=== PATIENT | male | born 1985 | race Caucasian/White ===

== ENCOUNTER 2017-02-03 12:00 | Emergency (ER) | payer OTHER ==
--- NOTE | ~2017-02-03 | EKG ---
PATIENT: LENA MILLER UNIT #: [id number] Ventricular Rate: 70 BPM Atrial Rate: 70 BPM P-R Interval: 142 ms QRS Duration: 118 ms Q-T Interval: 408 ms QTC Calculation(Bezet): 440 ms P [place]: 72 degrees Calculated R [place]: 68 degrees Calculated T [place]: 29 degrees Diagnosis Line: Normal sinus rhythm Diagnosis Line: RSR' or QR pattern in V1 suggests right Diagnosis Line: ventricular conduction delay Diagnosis Line: Borderline ECG Diagnosis Line: When compared with ECG of 28-SEP-2016 01:15, Diagnosis Line: No significant change was found Diagnosis Line: Confirmed by LIZZY PEREZ MD ([id number]) on Diagnosis Line: 02/03/2017 11:24:43 PM INTERPRETING MD: GABBY
--- NOTE | ~2017-02-03 | CT71 ---
[facility] A Service of [facility] RADIOLOGY TEXT RESULTS PATIENT: LENA MILLER LOCATION: [place] : 85 UNIT #: [id number] AGE: [address]: Smith Riley MD SEX: M ORDER DR: [id number] [facility] [address] [place], [place] [address] [id number] E MR#: [id number] Acc #: [id number] NAME: LENA MILLER : 1985 SEX: M STUDY DATE/TIME: 02/03/2017 14:20 UNIT: [place] ROOM: STUDY DESCRIPTION: CT Head Wo Contrast Attending Physician: Kal Downs D.O. Referring Physician: No Primary Care Physician Ordering Physician: Smith Botello M.D. Primary Care Physician: No Primary Care Physician MEDICAL IMAGING REPORT This report is preliminary unless electronic signature is present EXAM CT head 02/03/2017 HISTORY No known injury. Headache, blurry vision, dizziness for [address] head performed skull base through vertex without intravenous contrast. This CT exam was performed with one or more of the following radiation dose reduction techniques: automatic exposure control, adjustment of mA and/or kV according to patient size, and iterative reconstruction. COMPARISON STUDIES No prior studies for comparison. FINDINGS The brainstem is unremarkable. Cerebellum and cerebral hemispheres show normal laureano matter-white matter differentiation. No hemorrhage. No evidence of acute cortical ischemia. The midline structures are nondisplaced. The basal ganglia are intact. The ventricles, cisterns and sulci are normal in size and contour. No intra or extraaxial mass effect or abnormal intracranial fluid collection. Visualized intraorbital soft tissues unremarkable. The visualized paranasal sinuses and mastoid air cells are clear. No fracture. IMPRESSION Normal CT of the head. If the patient has ongoing neurologic symptoms, consider follow up imaging. Dictated by... Zion Mott M.D. [facility] A Service of [facility] RADIOLOGY TEXT RESULTS PATIENT: LENA MILLER LOCATION: [place] : 85 UNIT #: [id number] AGE: [address]: Smith Riley MD SEX: M ORDER DR: THIS IS AN ELECTRONICALLY VERIFIED REPORT Zion Mott M.D. at 02/07/2017 7:36 AM Erik TD: 02/03/2017 16:53 JOB #: [id number] MEDICAL IMAGING REPORT Page 1 of 1 COPY
--- NOTE | ~2017-02-03 | MR122 ---
[facility] A Service of [facility] RADIOLOGY TEXT RESULTS PATIENT: LENA MILLER LOCATION: [place] : 85 UNIT #: [id number] AGE: [address]: Kal Downs DO SEX: M ORDER DR: [id number] [facility] [address] [place], [place] [address] [id number] E MR#: [id number] Acc #: [id number] NAME: LENA MILLER : 1985 SEX: M STUDY DATE/TIME: 02/03/2017 17:11 UNIT: [facility] ROOM: STUDY DESCRIPTION: MR MRA Head Wo Contrast Attending Physician: Kal Downs D.O. Referring Physician: No Primary Care Physician Ordering Physician: Kal Downs D.O. Primary Care Physician: No Primary Care Physician MRI CENTER REPORT This report is preliminary unless electronic signature is present. EXAM Cranial MR angiogram 02/03/2017 HISTORY Nausea and dizziness for the past week, especially when walking. This is accompanied by headache. TECHNIQUE MR angiographic imaging was performed from the skull base up through the solomon of [place]. FINDINGS The MR angiographic images are normal. There is no evidence of aneurysm, vascular malformation or major branch vessel occlusion. No vessel wall irregularity is seen. There is good cross filling a the [place] of [place]. The vertebrals are codominant. IMPRESSION Normal. STAT * RESULT Dictated by... Gordo Ferrer M.D. THIS IS AN ELECTRONICALLY VERIFIED REPORT Gordo Ferrer M.D. at 02/03/2017 6:29 PM NIC/jay TD: 02/03/2017 18:03 JOB #: [id number] [facility] A Service of [facility] RADIOLOGY TEXT RESULTS PATIENT: LENA MILLER LOCATION: [place] : 85 UNIT #: [id number] AGE: [address]: Kal Downs DO SEX: M ORDER DR: MRI CENTER REPORT Page 1 of 1 COPY
--- NOTE | ~2017-02-03 | MR133 ---
[facility] A Service [facility] RADIOLOGY TEXT RESULTS PATIENT: LENA MILLER LOCATION: [place] : 85 UNIT #: [id number] AGE: [address]: Smith Riley MD SEX: M ORDER DR: [id number] [id number] [facility] [place], [place] [address] [id number] E MR#: [id number] Acc #: [id number] NAME: LENA MILLER : 1985 SEX: M STUDY DATE/TIME: 02/03/2017 17:11 UNIT: [place] ROOM: STUDY DESCRIPTION: MR MRA Neck WWo Contrast Attending Physician: Smith Riley Referring Physician: Primary Care Physician No Ordering Physician: Kal Downs D.O. Primary Care Physician: No Primary Care Physician MRI CENTER REPORT This report is preliminary unless electronic signature is present. EXAM Cervical carotid MR angiogram HISTORY Nausea and dizziness with headache and balance disturbance when walking over the past week. TECHNIQUE Cervical carotid MR angiography was performed with and without contrast. 12 mL of MultiHance was used. FINDINGS The great vessels are widely patent off of the aortic arch. The vertebral arteries are codominant and widely patent. The carotid circulation both bifurcations are clear with no evidence of stenosis or flow disturbance or dissection. No stenosis by NASCET criteria. IMPRESSION Normal. Dictated by... Gordo Ferrer M.D. THIS IS AN ELECTRONICALLY VERIFIED REPORT Gordo Ferrer M.D. at 02/06/2017 5:23 PM NIC/marcella TD: 02/03/2017 21:51 JOB #: [id number] MRI CENTER REPORT [facility] A Service [facility] RADIOLOGY TEXT RESULTS PATIENT: LENA MILLER LOCATION: [place] : 85 UNIT #: [id number] AGE: [address]: Smith Riley MD SEX: M ORDER DR: Page 1 of 1 COPY
--- NOTE | ~2017-02-03 | MR18 ---
[facility] A Service of [facility] RADIOLOGY TEXT RESULTS PATIENT: LENA MILLER LOCATION: [place] : 85 UNIT #: [id number] AGE: [address]: Kal Downs DO SEX: M ORDER DR: [id number] [facility] [address] [place], [place] [address] [id number] E MR#: [id number] Acc #: [id number] NAME: LENA MILLER : 1985 SEX: M STUDY DATE/TIME: 02/03/2017 17:11 UNIT: [place] ROOM: STUDY DESCRIPTION: MR Brain Wo Contrast Attending Physician: Kal Downs D.O. Referring Physician: No Primary Care Physician Ordering Physician: Kal Downs D.O. Primary Care Physician: No Primary Care Physician MRI CENTER REPORT This report is preliminary unless electronic signature is present. EXAM Brain MRI. HISTORY Headaches, dizziness and balance disturbance worse when walking over the past week. TECHNIQUE Multiplanar imaging of the brain was performed with and without contrast. 12 mL of MultiHance was used. FINDINGS Diffusion weighted images are normal. The routine brain images show no white matter signal abnormalities. Ventricular size is normal. No hemorrhages are seen on gradient echo imaging. Extraaxial structures are unremarkable. IMPRESSION Normal. STAT * RESULT Dictated by... Gordo Ferrer M.D. THIS IS AN ELECTRONICALLY VERIFIED REPORT Gordo Ferrer M.D. at 02/03/2017 6:29 PM NIC/lalitha TD: 02/03/2017 18:01 JOB #: [id number] [facility] A Service of [facility] RADIOLOGY TEXT RESULTS PATIENT: LENA MILLER LOCATION: [place] : 85 UNIT #: [id number] AGE: [address]: Kal Downs DO SEX: M ORDER DR: MRI CENTER REPORT Page 1 of 1 COPY
[2017-02-03 11:30] LABS: POC - CKMB 1.6 ng/mL (0.0-7.9); POC - TROPONIN <0.05 ng/mL (<=0.05)
[2017-02-03 11:31] LABS: BASOPHIL% 0.3 % (0-2.5); EOSINOPHIL% 0.2 % (0.0-7.0); HEMATOCRIT 46.6 % (38.0-50.0); HEMOGLOBIN 15.6 gm/dL (13.0-16.0); LYMPHOCYTE# 1.5 X10e3 (1.0-3.5); LYMPHOCYTE% 12.8 % (17.0-45.0); MEAN CELL VOLUME 88.4 FL (83-96); MEAN CORPUSCULAR HEMOGLOBIN 29.5 PG (28-34); MEAN CORPUSCULAR HGB CONC 33.4 g/dL (30-36); MEAN PLATELET VOLUME 8.1 FL (6.5-11.5); MONOCYTE# 0.5 X10e3 (0-1.0); MONOCYTE% 4.1 % (3.0-12.0); NEUTROPHIL# 9.7 X10e3 (1.5-7.1); NEUTROPHIL% 82.6 % (40-75); PLATELET COUNT 338 X10e3 (140-420); RED BLOOD COUNT 5.27 X10e (3.90-5.60); RED CELL DISTRIBUTION WIDTH 12.9 % (11.0-15.5); WHITE BLOOD COUNT 11.8 X10e3 (4.0-10.5)
[2017-02-03 11:37] LABS: DIFF IND NO
[2017-02-03 12:10] LABS: ALBUMIN SERUM 4.6 g/dL (3.5-5.0); BILIRUBIN, DIRECT 0.1 mg/dL (0.0-0.2); BILIRUBIN,INDIRECT 0.4 mg/dL (0.0-0.9); BILIRUBIN,TOTAL 0.5 mg/dL (0.2-2.0); BUN/CREATININE RATIO 13.75; CALCIUM SERUM 9.3 mg/dL (8.4-10.2); CREATININE SERUM 0.8 mg/dL (0.6-1.4); GLOM FILT RATE Estimated 118.2 mL/min (>60); POTASSIUM 3.8 mmol/L (3.5-5.1); PROTEIN TOTAL SERUM 7.6 g/dL (6.0-8.3)
== END 2017-02-03 20:16 | disposition home or self-care (01) ==
LOC: CED 12:00
DX: R42 Dizziness and giddiness (principal)
CPT/HCPCS: 36415; 70450; 70544; 70549; 70551; 80048; 80076; 82553; 82947; 84484; 85025; 93005; 96361; 96374; 96375; 99284; A9577; J2405; J2930

== ENCOUNTER 2017-03-11 02:23 | Emergency (ER) | payer OTHER ==
--- NOTE | ~2017-03-11 | CR72 ---
[facility] A Service of [facility] RADIOLOGY TEXT RESULTS PATIENT: LENA MILLER LOCATION: [facility] : 85 UNIT #: [id number] AGE: [address]: Yudith Munoz APRN SEX: M ORDER DR: [id number] [facility] [address] [place], [place] [address] [id number] E MR#: [id number] Acc #: [id number] NAME: LENA MILLER : 1985 SEX: M STUDY DATE/TIME: 03/11/2017 3:56 UNIT: [facility] ROOM: STUDY DESCRIPTION: CR Chest Single View Portable Attending Physician: Yudith Munoz A.P.R.N. Ordering Physician: Yudith Munoz A.P.R.N. Primary Care Physician: No Primary Care Physician MEDICAL IMAGING REPORT This report is preliminary unless electronic signature is present EXAM AP portable chest, 03/11/2017. HISTORY 32-year-old male in the ED complaining of a 2-week history of shortness of air and left side chest pain. TECHNIQUE AP portable upright chest x-ray. FINDINGS The examination is negative. The lungs are expanded and clear. No visible pulmonary infiltrate, pneumothorax, or pleural effusion. Heart size and pulmonary vascularity are normal. Tiny benign calcified granuloma left lateral lung base. No change since 09/28/2016. IMPRESSION No active disease. Dictated by... Emil Alexandre M.D. THIS IS AN ELECTRONICALLY VERIFIED REPORT Emil Alexandre M.D. at 03/11/2017 9:54 PM ESEQUIELW/garry TD: 03/11/2017 14:25 JOB #: [id number] MEDICAL IMAGING REPORT Page 1 of 1 COPY
--- NOTE | ~2017-03-11 | EKG ---
PATIENT: LENA MILLER UNIT #: [id number] Ventricular Rate: 92 BPM Atrial Rate: 92 BPM P-R Interval: 132 ms QRS Duration: 120 ms Q-T Interval: 382 ms QTC Calculation(Bezet): 472 ms P [place]: 69 degrees Calculated R [place]: 69 degrees Calculated T [place]: 36 degrees Diagnosis Line: Normal sinus rhythm Diagnosis Line: Possible Left atrial enlargement Diagnosis Line: Right bundle branch block Diagnosis Line: Abnormal ECG Diagnosis Line: When compared with ECG of 03-FEB-2017 11:02, Diagnosis Line: No significant change was found Diagnosis Line: Confirmed by LIZZY PEREZ MD ([id number]) on Diagnosis Line: 03/11/2017 2:02:11 PM INTERPRETING MD: GABBY
[2017-03-11 04:24] LABS: BASOPHIL% 0.3 % (0-2.5); EOSINOPHIL% 0.3 % (0.0-7.0); HEMATOCRIT 44.3 % (38.0-50.0); HEMOGLOBIN 15.1 gm/dL (13.0-16.0); LYMPHOCYTE# 1.7 X10e3 (1.0-3.5); MEAN CORPUSCULAR HEMOGLOBIN 29.6 PG (28-34); MEAN PLATELET VOLUME 7.7 FL (6.5-11.5); MONOCYTE# 0.8 X10e3 (0-1.0); MONOCYTE% 5.9 % (3.0-12.0); NEUTROPHIL# 10.8 X10e3 (1.5-7.1); NEUTROPHIL% 80.5 % (40-75); PLATELET COUNT 337 X10e3 (140-420); RED BLOOD COUNT 5.09 X10e (3.90-5.60); RED CELL DISTRIBUTION WIDTH 12.9 % (11.0-15.5); WHITE BLOOD COUNT 13.4 X10e3 (4.0-10.5)
[2017-03-11 04:26] LABS: DIFF IND NO
[2017-03-11 04:42] LABS: POC - CKMB <1.0 ng/mL (0.0-7.9); POC - TROPONIN <0.05 ng/mL (<=0.05)
[2017-03-11 04:48] LABS: INR 0.9; PARTIAL THROMBOPLASTIN TIME 28.9 SECONDS (23.5-31.3); PROTHROMBIN TIME (PATIENT) 9.8 SECONDS (9.6-11.5)
[2017-03-11 04:52] LABS: ALBUMIN SERUM 4.3 g/dL (3.5-5.0); BILIRUBIN,TOTAL 0.5 mg/dL (0.2-2.0); CREATININE SERUM 0.7 mg/dL (0.6-1.4); GLOM FILT RATE Estimated 124.9 mL/min (>60); POTASSIUM 3.6 mmol/L (3.5-5.1); PROTEIN TOTAL SERUM 7.2 g/dL (6.0-8.3)
[2017-03-11 06:08] LABS: POC - CKMB <1.0 ng/mL (0.0-7.9); POC - TROPONIN <0.05 ng/mL (<=0.05)
== END 2017-03-11 06:48 | disposition home or self-care (01) ==
LOC: CED 02:23
PROVIDERS: Nurse Practitioner
DX: R07.89 Other chest pain (principal); F41.9 Anxiety disorder, unspecified
CPT/HCPCS: 71010; 80053; 82150; 82553; 83690; 84484; 85025; 85379; 85610; 85730; 93005; 96360; 99284